=== PATIENT | female | born 1985 | race Two or more races ===

== ENCOUNTER → 2017-04-06 | Outpatient (CLI) | payer SELFPAY ==
--- NOTE | 2017-04-06 11:58 | RAD ---
Obstetrical ultrasound, 04/06/2017: History: size and date discrepancy There is a single intrauterine fetus in a breech orientation. The biparietal diameter measures 7.0 cm compatible with a gestational age of 28 weeks. The average gestational age based on all of the measurements is 28 weeks and 2 days yielding a sonographic EDC of 06/27/2017. Normal activity and heart motion were seen. A four-chamber heart is evident demonstrating a heart rate of 153 bpm. Fluid is identified in the bladder and stomach. The kidneys and spine are unremarkable. A three-vessel umbilical cord is noted with a normal cord insertion. No specific abnormality is detected. The amniotic fluid volume is within normal limits with the STACIE calculated at 13.8. The placenta is located posteriorly. There is no evidence of placenta previa. The cervical length is approximately 6 cm. The maternal ovaries were not visualized. IMPRESSION: Single viable intrauterine fetus of 28 weeks gestational age as described above.
== END | disposition home or self-care (01) ==
LOC: US 09:03
PROVIDERS: ATTEND Obstetrics & Gynecology
DX: O09.893 Supervision of other high risk pregnancies, third trimester (principal); Z3A.28 28 weeks gestation of pregnancy
CPT/HCPCS: 76805